=== PATIENT | male | born 1975 | race Caucasian/White ===

== ENCOUNTER 2017-11-30 11:08 | Emergency (ER) | payer OTHER ==
[~2017-11-30] VITALS: Ht 185.4 cm; Wt 158.8 kg
[~2017-11-30 11:08] MED LIST: NORCO 5-325 TA1 EACH PO; PREDNISONE 10 M10 MG PO
[2017-11-30 11:17] VITALS: BP 177/105
[2017-11-30] MEDS ORDERED: NORCO 5-325 TA1 EACH PO (11:24)
[2017-11-30] MEDS ORDERED: PENICILLIN V P500 MG PO (11:24)
== END 2017-11-30 11:36 | disposition home or self-care (01) ==
LOC: M.ERS 11:08
DX: K04.7 Periapical abscess without sinus (principal); M10.9 Gout, unspecified; E11.9 Type 2 diabetes mellitus without complications; F17.210 Nicotine dependence, cigarettes, uncomplicated